=== PATIENT | male | born 1995 | race Caucasian/White ===

== ENCOUNTER → 2017-02-13 | Outpatient (CLI) | payer OTHER ==
--- NOTE | 2017-02-13 21:54 | DIAGNOSTIC IMAGING REPORT ---
MRI THE RIGHT KNEE NO CONTRAST CLINICAL HISTORY: Right knee pain status post trauma COMPARISON STUDY: L radiographic study dated 02-28 FINDINGS: Imaging was performed in the axial, sagittal, and coronal planes. There is a small to moderate joint effusion. The quadriceps and patellar tendons appear intact. The posterior cruciate ligament appears normal. The anterior cruciate ligament is torn. No tears of the medial or lateral menisci are visualized. There is a bone contusion involving the posterior aspect of the lateral tibial plateau. The medial and lateral collateral ligaments appear intact. The patellar retinacular structures appear intact. IMPRESSION: 1. Anterior cruciate ligament tear 2. Bone contusion involving the posterior aspect of the lateral tibial plateau 3. No evidence of meniscal tear 4. Small to moderate joint effusion Electronically signed by: Mil Ordoñez M.D. 02/13/2017 9:53 PM Dictated Date/Time: 02/13/2017 9:51 PM
--- NOTE | 2017-02-19 14:24 | CODING QUERY NO DIAGNOSIS ---
: 1995 TREATMENT RENDERED WITHOUT A DIAGNOSIS To promote full compliance with coding requirements relating to patient care, physician participation is requested in all cases of campus aide uncertainty. Please assist us with providing a diagnosis/symptom for the test(s) below: A diagnosis/symptom was not documented on your Order. A valid diagnosis/symptom is required to bill all insurances. Please remember that we are unable to code a diagnosis of rule out, probable, possible, questionable, or suspected. Tests that require a diagnosis: DOS: 02/13/17 * MRI LOWER EXT JOINT WITHOUT CONTRAST DIAGNOSIS: Provider Signature: Date: Thank you Malena Leal Health Information Management Once completed, please kindly fax back to [phone] For questions please call [phone]
== END | disposition home or self-care (01) ==
LOC: C.MRI 21:07
PROVIDERS: ATTEND Orthopaedic Surgery
DX: S83.511A Sprain of anterior cruciate ligament of right knee, initial encounter (principal); X58.XXXA Exposure to other specified factors, initial encounter; S80.01XA Contusion of right knee, initial encounter; M25.461 Effusion, right knee

== ENCOUNTER 2017-12-01 20:52 | Emergency (ER) | payer BC, OTHER ==
[~2017-12-01] VITALS: Ht 177.8 cm; Wt 82.1 kg
[2017-12-01 20:54] VITALS: BP 142/82; TEMP 36.7; Ht 177.8 cm; Wt 82.1 kg
[2017-12-01] MEDS ORDERED: GELATIN SPONGE 12-7MM EXT ONE (21:45)
[2017-12-01 22:01] VITALS: PULSE 63; O2SAT 95
--- NOTE | 2017-12-02 00:42 | EMERGENCY ROOM VISIT NOTE ---
History First contact with patient: 21:34 Chief Complaint: LACERATION/CUT (SUT/DERMABOND) Stated Complaint: CUT LEFT MIDDLE FINGER AND THUMB Nursing Triage Summary: Pt states he was cleaning a knife and lacerated right thumb and middle fingers. Avulsions noted. Tetanus is UTD. History of Present Illness The patient is a 22 year old male who presents to the Emergency Room with complaints of laceration to his right first and third fingers. The patient was cleaning a kitchen knife, when he accidentally cut through the distal end of the fingers. The patient is left-hand dominant and states his tetanus was updated 1 week ago. The patient was able to control the blood pressure in the injury occurred about 90 minutes prior to arrival. He does not have significant pain or other injury. He rates his discomfort as 0/10. Review of Systems More than 6 systems were reviewed and otherwise negative with the exception of history of present illness. Past Medical/Surgical History No chronic medical disease. History of bilateral knee surgeries Family History No pertinent family history Social History Smoking Status: Never Smoker Occupation Status: [employer] student Physical Exam Vital Signs Date Time Temp Pulse Resp B/P (MAP) Pulse Ox O2 Delivery O2 Flow Rate FiO2 12/01/17 22:01 63 95 12/01/17 20:54 36.7 67 18 142/82 95 Room Air Physical Exam VITALS: Vitals are noted on the nurse's note and reviewed by myself. Vital signs stable. GENERAL: Well-developed, well-nourished, white male, who is in no acute distress and resting comfortably. Patient is cooperative with the examination. HEAD: Normocephalic atraumatic. HEART: Regular rate and rhythm without murmurs gallops or rubs. LUNGS: Clear to auscultation bilaterally without wheezes, rales or rhonchi. No retractions or accessory muscle use. MUSCULOSKELETAL: Small 2-3 mm avulsion lacerations are appreciated to the distal and the right first and right third digits. There is no significant bleeding. Patient is with full flexion and extension. NEURO: Patient was alert and oriented to person place and time. CN II through XII grossly intact. Medical Decision & Procedures ED Course Physical exam and history were performed. Nursing notes, EMR, and Medication List were personally reviewed. Patient appears to have fingertip avulsions of the right first and third digits. These appear relatively small and are not amenable to suturing. the wounds were cleansed and dressed with a Gelfoam dressing. The patient was given wound care instructions. He was invited back to the ER with any new, worsening, or concerning symptoms. The chart was completed utilizing [employer] Speech Voice Recognition Software. Grammatical errors, random word insertions, pronoun errors, and incomplete sentences are an occasional consequence of this system due to software limitations, ambient noise, and hardware issues. Any formal questions or concerns about the content, text, or information contained within the body of this dictation should be directly addressed to the provider for clarification. . Medical Decision Differential diagnosis includes, but is not limited to: Laceration, abrasion, foreign body infection, and others Impression Primary Impression: Avulsion, finger tip Departure Information Dispostion Home / Self-Care Condition GOOD Forms HOME CARE DOCUMENTATION FORM, IMPORTANT VISIT INFORMATION Patient Instructions [facility], ED Gelfoam Dressing Additional Instructions Keep the gelfoam dressing in place for 2-3 days Do not get the dressing wet
== END 2017-12-01 22:03 | disposition home or self-care (01) ==
LOC: C.EDB 20:53 → C.EDD 22:03
DX: S61.011A Laceration without foreign body of right thumb without damage to nail, initial encounter (principal); S61.212A Laceration without foreign body of right middle finger without damage to nail, initial encounter; W26.0XXA Contact with knife, initial encounter